=== PATIENT | female | born 1960 | race Caucasian/White ===

== ENCOUNTER 2021-06-14 16:12 | Emergency (ER) | payer OTHER ==
[~2021-06-14] VITALS: Ht 167.6 cm; Wt 74.8 kg
[2021-06-14] MEDS ORDERED: CASIRIVIMAB/IMDEVIMAB 10 ML VIAL IV ONE (17:30)
[2021-06-14] MEDS ORDERED: CASIRIVIMAB/IMDEVIMAB 600 ML in SODIUM CHLORIDE 0.9% 100 ML IV ONE (17:45)
[2021-06-14 19:27] VITALS: BP 111/80
== END 2021-06-14 19:30 | disposition home or self-care (01) ==
LOC: ER 17:26
DX: R50.9 Fever, unspecified (principal); U07.1 COVID-19
CPT/HCPCS: 99283